=== PATIENT | male | born 1975 | race Caucasian/White ===

== ENCOUNTER 2018-01-29 12:51 | Emergency (ER) | payer SELFPAY ==
[~2018-01-29] VITALS: Ht 177.8 cm; Wt 79.0 kg
[2018-01-29] MEDS ORDERED: SODIUM CHLORIDE 0.9% 1,000 ML IV ONE (17:34)
[2018-01-29 17:41] VITALS: BP 128/72
[2018-01-29] MEDS ORDERED: OLANZAPINE 10 MG/VIAL IM ONE (17:45)
[2018-01-29] MEDS ORDERED: LORAZEPAM 2MG/ML CPJ IM ONE (17:45)
== END 2018-01-29 17:56 | disposition left against medical advice (07) ==
LOC: ER 13:07
DX: F15.10 Other stimulant abuse, uncomplicated (principal); F17.200 Nicotine dependence, unspecified, uncomplicated
CPT/HCPCS: 99283; J7030; Z7610